=== PATIENT | male | born 1940 | race Caucasian/White ===

== ENCOUNTER → 2020-05-03 | Outpatient (CLI) | payer MEDICARE ==
[~2020-05-03] MED LIST: BREO ELLIPTA 21 EACH INH; GLUCOSAMINE H1500 MG PO; LISINOPRIL20 MG PO; PROAIR HFA8.5 GM INH; XARELTO20 MG PO
--- NOTE | 2020-05-03 16:20 | CARDNUC ---
[place] [address] CARDIAC NUCLEAR IMAGING REPORT Name: SERENA HUBBARD Room: [facility]#: [id number] Admission: 05/03/20 Attend Phys: Osei Lemus, Discharge: Date of : 40 Date of Service: 05/03/20 1620 Report #: [id number] THIS REPORT FOR: cc: Casper Dia,Casper Alvarado,Osei Dalton MD [facility] ~ APPROVED REPORT Imaging Protocol: Rest Tc-99m/Stress Tc-99m 1 day Study performed: 05/03/2020 08:30:00 Indication: Dyspnea Patient Location: Out-Patient Stress Tech: Magdalena Mendiola Stress Nurse: Evangelina Griffin RN NM Tech:ESHA Grove Ht: 5 ft 6 in Wt: 186 lbs BSA: 1.94 m2 BMI: 30.01 Medical History Medical History: Arrhythmia, Carotid artery disease, COPD, HTN, Hyperlipidemia Medications: xarelto, lisinopril Allergies: penicillin Cardiac Risk Factors: Age, HTN, Hyperlipidemia, Tobacco History (Former) Exercise History: Indeterminate Resting Data Rest SPECT myocardial perfusion imaging was performed in supine position 30 minutes following the intravenous injection of 10.3 mCi of Tc-99m Sestamibi. Time of rest injection: 844 Date: 05/03/2020 The images were gated to evaluate regional wall motion and calculate left ventricular ejection fraction. Administration Route: IV Administration Site: Right AC Pharmacologic Stress Pharmacologic stress test was performed by injecting Regadenoson 0.4 mg IV push over 10-15 seconds immediately followed by the intravenous injection of 34.5 mCi of Tc-99m Sestamibi. Time of stress injection: 1025 Date: 05/03/2020 [place] [address] CARDIAC NUCLEAR IMAGING REPORT Name: SERENA HUBBARD Room: [facility]#: [id number] Admission: 05/03/20 Attend Phys: Osei Lemus, Discharge: Date of : 40 Date of Service: 05/03/20 1620 Report #: [id number] Administration Route: IV Administration Site: Right AC Gated Stress SPECT was performed 40 minutes after stress injection. The images were gated to evaluate regional wall motion and calculate left ventricular ejection fraction. Prone imaging was performed. Stress Test Details Stress Test: Pharmacologic stress testing performed using 0.4 mg of regadenoson per 5 mL given IV over 10 seconds. Reason for pharmacologic stress test: physical limitation, a flutter. HR Max Heart Rate (APMHR): 141 bpm Resting HR: 77 bpm Target HR (85% APMHR): 119 bpm Max HR Achieved: 135 bpm % of APMHR: 95 Recovery HR: 112 bpm BP Resting BP: 146/91 mmHg Max BP: 106/57 mmHg Recovery BP: 138/67 mmHg ECG Resting ECG: Atrial Flutter Stress ECG: Atrial Flutter ST Change: None Recovery ECG: Atrial Flutter Recovery ST Change: None Clinical Reason for Termination: Completed protocol The patient tolerated Lexiscan infusion without significant cardiac symptoms. Stress ECG Conclusion The baseline EKG shows atrial flutter without obvious ST segment abnormality. EKGs obtained during and post Lexiscan infusion show atrial flutter with no significant ST segment changes when compared to baseline. Study Quality Study: Good Artifact: [place] [address] CARDIAC NUCLEAR IMAGING REPORT Name: SERENA HUBBARD Room: [facility]#: [id number] Admission: 05/03/20 Attend Phys: Osei Lemus, Discharge: Date of : 40 Date of Service: 05/03/20 1620 Report #: [id number] Study Data At rest, the left ventricular ejection fraction was 66%.. Post stress, the left ventricular ejection was 64%.. TID = 0.96. Perfusion Perfusion images obtained in the supine position show mild photopenia of the basal to mid inferior wall that resolves completely with post-rest prone imaging suggesting diaphragmatic attenuation artifact. No other significant fixed or reversible defects are identified. Wall Motion Normal left ventricular wall motion. Nuclear Conclusion ECG Findings: negative for ischemia Clinical Findings: negative for ischemia Nuclear Findings: negative for ischemia Exercise Capacity: not assessed Left Ventricular Function: normal Risk Study: low Perfusion images show no defect to suggest infarct or ischemia. Left ventricular systolic function appears normal on gated studies. This is a low risk study. <Conclusion> The baseline EKG shows atrial flutter without obvious ST segment abnormality. EKGs obtained during and post Lexiscan infusion show atrial flutter with no significant ST segment changes when compared to baseline. <ELECTRONICALLY SIGNED> By: Osei Lemus MD, FACC 05/03/20 1620 19 19 Osei Lemus MD, FACC /INF
== END ==
LOC: M.NUC 02-13 15:20 → M.CRD 03-12 13:00 → M.NUC 03-12 13:00
PROVIDERS: ATTEND Internal Medicine Cardiovascular Disease
DX: R06.02 Shortness of breath (principal)